=== PATIENT | male | born 1965 | race African-American/Black ===

== ENCOUNTER → 2016-06-27 | Outpatient (CLI) | payer MEDICARE, MEDICAID ==
[~2016-06-27] MED LIST: DIGO0.1262 PO; DIVA250T61 PO; FOLI1TAB51 PO; FURO40TA PO; LISI-646 PO; LORA-205 PO; METO25TA3 PO; NIC21P TD; POT20T PO; QUE25T PO; THIA100T5 PO
== END | disposition home or self-care (01) ==
LOC: XYW 11:16
PROVIDERS: ATTEND Internal Medicine
DX: I50.9 Heart failure, unspecified (principal)
CPT/HCPCS: 93306

== ENCOUNTER → 2016-06-27 | Outpatient (CLI) | payer MEDICARE, MEDICAID ==
[2016-06-27 12:28] LABS: Hematocrit 39.3 % (41.0-53.0); Hemoglobin 12.7 g/dL (13.5-17.5); Mean Corpuscular Hgb Conc. 32.2 g/dL (32.0-36.0); Mean Corpuscular Volume 89.9 fL (80.0-100.0); Mean Platelet Volume 9.1 fL (7.4-10.4); Platelet Count (auto) 154 10^3/uL (140-450); Red Cell Distribution Width 13.3 % (11.6-16.0); White Blood Cell 3.7 10^3/uL (4.4-10.8)
[2016-06-27 12:56] LABS: Metamyelocytes % 0; Myelocytes % 0; Promyelocytes % 0; Reactive Lymphocytes 0
[2016-06-27 13:01] LABS: Albumin 3.3 g/dL (3.4-5.0); BUN/Creatinine Ratio 8.8; Bilirubin, Total 0.2 mg/dL (0.2-1.0); Calcium 8.9 mg/dL (8.5-10.1); Potassium 4.4 mmol/L (3.5-5.1); Total Protein 7.1 g/dL (6.4-8.2)
[2016-06-27 15:24] LABS: Platelet Estimate Adequate
== END | disposition home or self-care (01) ==
LOC: LAB 12:05
PROVIDERS: ATTEND Internal Medicine
DX: Z00.00 Encounter for general adult medical examination without abnormal findings (principal); I10 Essential (primary) hypertension; E78.2 Mixed hyperlipidemia; E55.9 Vitamin D deficiency, unspecified
CPT/HCPCS: 36415; 80053; 80061; 82306; 84443; 85007; 85027